=== PATIENT | male | born 1960 | race Caucasian/White ===

== ENCOUNTER 2022-12-21 06:52 | Day surgery (SDC) | payer OTHER ==
[~2022-12-21 06:52] MED LIST: Midazolam 1 MG/ML 2 ML SDV ONE; Propofol 200 MG/20 ML SDV ONE; fentaNYL 50 MCG/ML SDV ONE
[2022-12-21] MEDS ORDERED: Lactated Ringers 1,000 ML IV SCH (08:00)
== END 2022-12-21 09:45 | disposition home or self-care (01) ==
LOC: JP.SDS 06:52
PROVIDERS: ATTEND Student in an Organized Health Care Education/Training Program
DX: Z12.11 Encounter for screening for malignant neoplasm of colon (principal); D12.0 Benign neoplasm of cecum; K63.5 Polyp of colon; K62.1 Rectal polyp; I25.10 Atherosclerotic heart disease of native coronary artery without angina pectoris; F17.200 Nicotine dependence, unspecified, uncomplicated; E78.00 Pure hypercholesterolemia, unspecified
CPT/HCPCS: 45380; J2250; J2704; J3010; J7120; 88305